=== PATIENT | female | born 1960 | race Caucasian/White ===

== ENCOUNTER 2017-05-08 20:22 | Inpatient (IN) | payer OTHER ==
[~2017-05-08] VITALS: Ht 182.9 cm; Wt 66.4 kg
[2017-05-08 21:32] LABS: ABSOLUTE BASOPHIL COUNT 0.1 /CUMM (0.0-0.2); ABSOLUTE EOSINOPHIL COUNT 0.1 /CUMM (0.0-0.7); ABSOLUTE GRANULOCYTE CT 8.7 /CUMM (1.4-6.5); ABSOLUTE LYMPH COUNT 3.3 /CUMM (1.2-3.4); ABSOLUTE MONOCYTE COUNT 0.8 /CUMM (0.10-0.60); BASOPHIL % 0.6 % (0.0-2.0); EOSINOPHIL % 0.4 % (0-5); GRANULOCYTE % 67.5 % (42.2-75.2); MEAN CORPUSCULAR HGB 30.1 PG (27.0-31.0); MEAN CORPUSCULAR HGB CONC 33.4 G/DL (33.0-37.0); MEAN CORPUSCULAR VOLUME 90.3 FL (81.0-99.0); MEAN PLATELET VOLUME 7.5 FL (7.4-10.4); PLATELET COUNT 325 /CUMM (130-400); RBC DISTRIBUTION WIDTH 13.8 % (11.5-14.5); RED BLOOD CELL CT 4.65 /CUMM (4.20-5.40); WHITE BLOOD CELL COUNT 12.9 /CUMM (4.8-10.8)
--- NOTE | 2017-05-08 22:12 | ED CARDIAC/CP/PALPITATIONS ---
History of Present Illness General Chief Complaint: Chest Pain Stated Complaint: CHEST PAIN Source: patient Exam Limitations: no limitations Vital Signs & Intake/Output Vital Signs & Intake/Output Vital Signs Date Time Temp Pulse Resp B/P B/P Pulse O2 O2 Flow FiO2 Mean Ox Delivery Rate 05/08 2249 84 118/70 05/08 2249 84 18 118/70 100 Room Air 05/08 2054 98.3 96 16 108/60 99 Room Air Room Air ED Intake and Output 05/09 0000 05/08 1200 Intake Total 0 Output Total Balance 0 Intake, Oral 0 Patient 155 lb Weight Allergies Coded Allergies: adhesive (Mild, RASH, ITCHING, WELTS FROM THE PATCH FROM SMOKING 05/08/17) Reconcile Medications Gabapentin 300 MG CAPSULE 2 CAP PO TID PRN ANXIETY (Reported) Lisdexamfetamine Dimesylate (Vyvanse) 40 MG CAPSULE 1 CAP PO QAM ADHD ( Reported) Paroxetine HCl (Paxil) 10 MG TABLET 2 TAB PO DAILY MENTAL HEALTH (Reported) Triage Note: PT TO TRIAGE AFTER A NEAR SYNCOPAL EPISODE AT WORK THIS EVENING. PT STATES HER VISION WENT TO BLACK, SHE BECAME DIAPHORETIC, HAD JAW PAIN. DENIES CHEST PAIN, BUT HAD PAIN IN HER BACK. CURRENTLY SHE APPEARS IN NO DISTRESS. STATES SHE ONLY HAS A HEADACHE. Triage Nurses Notes Reviewed? yes Onset: Abrupt Duration: hour(s):, resolved prior to arrival Timing: recent history Quality/Severity: moderate, severe Radiation: no radiation HPI: 56-year-old female comes into the emergency room for evaluation of chest pain/ jaw pain/dizziness and heart felt like it was racing. Patient reports that she was at work. She was sitting at her desk. Symptoms she felt like her heart was racing and everything went black. She leaned over. She had some associated jaw pain radiating down into her clavicle region and some upper abdominal pain. Symptoms lasted for about 30 minutes. She went to a walk-in clinic who sent her up here to the emergency room for further evaluation. She denies any vomiting. Her symptoms have resolved. She denies any other associated symptoms at this time. Currently chest pain-free. (Ran FLORES,Shane) Past History Travel History Traveled to [place] past 21 day No Medical History Any Pertinent Medical History? see below for history Neurological: NONE EENT: NONE Cardiovascular: MITRAL VALVE PROLAPSED Psychiatric: ADHD Surgical History Surgical History: non-contributory Psychosocial History What is your primary language Grenadian Tobacco Use: Current Daily Use Daily Tobacco Use Amount/Type: => 5 Cigarettes daily ETOH Use: denies use Illicit Drug Use: denies illicit drug use Family History Hx Contributory? No (Shane Garrett) Review of Systems Review of Systems Constitutional: Reports: see HPI. EENTM: Reports: no symptoms. Respiratory: Reports: see HPI. Cardiovascular: Reports: see HPI. GI: Reports: no symptoms. Genitourinary: Reports: no symptoms. Musculoskeletal: Reports: no symptoms. Skin: Reports: no symptoms. Neurological/Psychological: Reports: no symptoms. Hematologic/Endocrine: Reports: no symptoms. Immunologic/Allergic: Reports: no symptoms. All Other Systems: Reviewed and Negative (Shane Garrett) Physical Exam Physical Exam General Appearance: well developed/nourished, no apparent distress, alert, awake Head: atraumatic, normal appearance Eyes: Bilateral: normal appearance. Ears, Nose, Throat: normal ENT inspection, hearing grossly normal Neck: normal inspection Respiratory: normal breath sounds, no respiratory distress Cardiovascular: regular rate/rhythm Back: normal inspection Extremities: normal inspection Neurologic/Psych: awake, alert, oriented x 3, normal gait, normal mood/affect Skin: intact, normal color Core Measures ACS in differential dx? Yes CVA/TIA Diagnosis No Sepsis Present: No Sepsis Focused Exam Completed? No (Shane Garrtet) Progress Differential Diagnosis: AMI, aortic dissection, hyperthyroid, pancreatitis, pericarditis, pneumonia, pneumothorax, pulmonary embolism, unstable angina, V- fib/V-Tach Plan of Care: Orders Procedure Date/time Status Heart Healthy Diet 05/09 D Active Heart Healthy Diet 05/09 B Active TROPONIN LEVEL 05/09 1100 Active EKG 05/09 1100 Active LIPID PANEL 05/09 0600 Active CBC WITHOUT DIFFERENTIAL 05/09 06 Active BASIC ELECTROLYTES PLUS BUN&CR 05/09 0600 Active PARTIAL THROMBOPLASTIN TIME 05/09 0440 Active TROPONIN LEVEL 05/09 0400 Active EKG 05/09 0400 Active Pathway - chart 05/08 2347 Active Code Status 05/08 2347 Active Lab Add-on Test 05/08 2344 Active URINE DRUGS OF ABUSE 05/08 2344 Active URINALYSIS 05/08 2344 Active Lab Add-on Test 03/08 2302 Active Patient Data 05/08 2242 Active Add-on Test (ER Only) 05/08 2236 Active OXYGEN SETUP (GEN) 05/08 2230 Active Saline Lock 05/08 2230 Active Admit to inpatient 05/08 2230 Active Vital Signs 05/08 2230 Active Activity/Ambulation 05/08 2230 Active Code Status 05/08 2230 Complete Intake & Output 05/08 2216 Active Add-on Test (ER Only) 05/08 2152 Active TSH REFLEX 05/08 2099 Complete PARTIAL THROMBOPLASTIN TIME 05/08 2099 Complete PROTHROMBIN TIME 05/08 2099 Complete D-DIMER 05/08 2099 Complete TROPONIN LEVEL 05/09 2055 Complete COMPREHENSIVE METABOLIC PANEL 05/09 2055 Complete CBC WITHOUT DIFFERENTIAL 05/09 2055 Complete EKG 05/08 2022 Active Pathway - chart 05/08 UNK Active House Staff 05/08 UNK Active ACS Core Measures 05/08 UNK Active Weight 05/08 UNK Active VTE Mechanical Prophylaxis 05/08 UNK Active Vital Signs 05/08 UNK Active Intake & Output 05/08 UNK Active Hemoccult 05/08 UNK Active Activity/Ambulation 05/08 UNK Active CASE MANAGEMENT CONSULT 05/08 UNK Active ECHOCARDIOGRAM 05/08 UNK Active Current Medications Sig/Thor Start time Last Medication Dose Stop Time Status Admin Aspirin 81 MG DAILY 05/09 1000 AC (Aspirin) Clopidogrel Bisulfate 75 MG DAILY 05/09 1000 AC (Plavix) Metoprolol Tartrate 25 MG BID 05/09 1000 AC (Lopressor) Multivitamins 1 TAB DAILY 05/09 1000 CAN (Theragran Vitamins) Paroxetine HCl 20 MG DAILY 05/09 1000 AC (Paxil) Gabapentin 600 MG TID PRN 05/09 0015 AC (Neurontin) Heparin Sodium 25,000 UNIT Q24H 05/08 2230 AC 05/08 (Porcine) 2236 (Heparin) Sodium Chloride 500 ML Laboratory Tests 05/08/172099: Anion Gap 10, Estimated GFR 58 L, BUN/Creatinine Ratio 16.0, Glucose 91, Calcium 9.8, Total Bilirubin 0.8, AST 46 H, ALT 53 H, Alkaline Phosphatase 70, Troponin I 0.16 *H, Total Protein 7.3, Albumin 4.2, Globulin 3.1, Albumin/ Globulin Ratio 1.4, TSH &T3 &Free T4 Intrp 3.120, PT 11.1, INR 1.02, APTT 34, D- Dimer High Sensitivty < 200, CBC w Diff NO MAN DIFF REQ, RBC 4.65, MCV 90.3, MCH 30.1, MCHC 33.4, RDW 13.8, MPV 7.5, Gran % 67.5, Lymphocytes % 25.4, Monocytes % 6.1, Eosinophils % 0.4, Basophils % 0.6, Absolute Granulocytes 8.7 H, Absolute Lymphocytes 3.3, Absolute Monocytes 0.8 H, Absolute Eosinophils 0.1, Absolute Basophils 0.1 Diagnostic Imaging: Viewed by Me: Radiology Read. Discussed w/RAD: Radiology Read. Initial ED EKG: normal sinus rhythm, rate (91), nonspecific ST T wave chg (Shane Garrett) Departure Departure Disposition: STILL A PATIENT Condition: Stable Clinical Impression Primary Impression: Unstable angina Secondary Impressions: Troponin level elevated Referrals: Bassam Kapadia MD (PCP/Family) Departure Forms: Customer Survey General Discharge Information Admission Note Spoke With: Terri ALEX PHD,Rainer Salazar Documentation of Exam: Documentation of any treatments & extenuating circumstances including Concerns Regarding Discharge (functional status, medication knowledge or non-compliance, living conditions, etc.) that warrant an admission rather than observation: Patient has an elevated troponin. Patient had a cardiac event. Patient will require IV heparin. Plavix. Aspirin. Cardiac telemetry. Serial troponins. Cardiac consultation. High risk. Medically not safe for discharge. (Shane Garrett) PA/FLATWORK TIER Co-Sign Statement Statement: ED Attending supervision documentation- x I saw and evaluated the patient. I have also reviewed all the pertinent lab results and diagnostic results. I agree with the findings and the plan of care as documented in the PA's/FLATWORK TIER's documentation. Exertional cp, + trop, NSTEMI [] I have reviewed the ED Record and agree with the PA's/FLATWORK TIER's documentation. [] Additions or exceptions (if any) to the PAs/FLATWORK TIER's note and plan are summarized below: [] (Cristiana ALEX,Santos) Critical Care Note Critical Care Note Critical Care Time: 30-74 min (35) (Shane Garrett)
--- NOTE | 2017-05-08 22:28 | History & Physical ---
Isaac ALEX,[facility] 05/08/173: General Information and HPI MD Statement: I have seen and personally examined TREVOR CARBALOL and documented this H&P. The patient is a 56 year old F who presented with a patient stated chief complaint of [chest pain]. Source of Information: patient Exam Limitations: no limitations History of Present Illness: 56 year old F with a pmhx of adhd, etoh abuse, presenting for epigastric pain and a ?syncopal event. Patient states symptoms started around 445pm witha flores of heat. She states everything went black visually and then she put her head down on her desk. Then sat up and felt palpitations/tachy. Used a bp monitoring cuff and found her vitals to be 80/63 with HR 129 and then 88/76 with HR 115. She then had jawpain b/l radiating to her clavicle. Her hr reminaed 100+. She was sweating and had epigastric pain but no chest pain. She then proceeded to leave work but felt work and even her purse felt heavy. She then saw in her car and saw chest palpitations. She felt a little dizzy and [facility] and was told to go to the ED. She states that earlier in the day she did have hot flashes, and neck pain. She states she had a similar episode 3-4 months ago with very similar symptoms. Past History Travel History Traveled to [place] past 21 day No Medical History Neurological: NONE EENT: NONE Cardiovascular: MITRAL VALVE PROLAPSED Psychiatric: ADHD Surgical History Surgical History: non-contributory Past Family/Social History Psychosocial History Smoking Status: Current Everyday Smoker ETOH Use: former alcoholic Illicit Drug Use: denies illicit drug use Review of Systems Review of Systems Constitutional: Reports: see HPI, diaphoresis, weakness. EENTM: Reports: see HPI. Cardiovascular: Reports: see HPI (epigastric pain), palpitations. Musculoskeletal: Reports: see HPI. Neurological/Psychological: Reports: see HPI (lightheadedness). Exam & Diagnostic Data Last 24 Hrs of Vital Signs/I&O Vital Signs Date Time Temp Pulse Resp B/P B/P Pulse O2 O2 Flow FiO2 Mean Ox Delivery Rate 05/09 1236 72 90/50 05/09 0854 64 90/60 05/09 0634 98.2 64 20 90/60 95 05/09 0133 98.0 65 20 100/68 96 05/09 0049 97.8 78 16 109/75 98 05/089 84 118/70 05/089 84 18 118/70 100 Room Air 05/08 2053 98.3 96 16 108/60 99 Room Air Room Air Intake & Output 05/09 1600 05/09 0800 05/09 0000 Intake Total 138 0 Output Total Balance 138 0 Intake, IV 138 Intake, Oral 0 0 Patient 155 lb 155 lb Weight Weight Bed scale Measurement Method Physical Exam General Appearance Alert, Oriented X3, Cooperative HEENT EOMI, dry oral mucosa Cardiovascular systolic murmur Lungs Clear to Auscultation, Normal Air Movement Abdomen Normal Bowel Sounds, Soft, No Tenderness Extremities 5/5 UE and LE strength b/l Vascular 2+ radial pulses Last 24 Hrs of Labs/Raffy: Laboratory Tests 05/09/17 1126: Troponin I 0.17 *H, APTT 60 H 05/09/17 0400: Troponin I Cancelled 05/09/17 0355: Anion Gap 8, Estimated GFR > 60, BUN/Creatinine Ratio 26.3 H, Troponin I 0.29 * H, Triglycerides 63, Cholesterol 166, LDL Cholesterol, Calc 95, HDL Cholesterol 59, Cholesterol/HDL Ratio 3, APTT 53 H, CBC w Diff NO MAN DIFF REQ, RBC 4.21, MCV 90.0, MCH 30.5, MCHC 33.8, RDW 14.0, MPV 7.5, Gran % 50.5, Lymphocytes % 40.3, Monocytes % 6.4, Eosinophils % 2.1, Basophils % 0.7, Absolute Granulocytes 5.3, Absolute Lymphocytes 4.2 H, Absolute Monocytes 0.7 H, Absolute Eosinophils 0.2, Absolute Basophils 0.1 05/08/17 2344: Methadone Screen Cancelled, Barbiturate Screen Cancelled, Ur Phencyclidine Scrn Cancelled, Amphetamines Screen Cancelled, U Benzodiazepines Scrn Cancelled, Urine Cocaine Screen Cancelled, Urine Cannabis Screen Cancelled 05/08/17 2100: Anion Gap 10, Estimated GFR 58 L, BUN/Creatinine Ratio 16.0, Glucose 91, Calcium 9.8, Total Bilirubin 0.8, AST 46 H, ALT 53 H, Alkaline Phosphatase 70, Troponin I 0.16 *H, Total Protein 7.3, Albumin 4.2, Globulin 3.1, Albumin/ Globulin Ratio 1.4, TSH &T3 &Free T4 Intrp 3.120, PT 11.1, INR 1.02, APTT 34, D- Dimer High Sensitivty < 200, CBC w Diff NO MAN DIFF REQ, RBC 4.65, MCV 90.3, MCH 30.1, MCHC 33.4, RDW 13.8, MPV 7.5, Gran % 67.5, Lymphocytes % 25.4, Monocytes % 6.1, Eosinophils % 0.4, Basophils % 0.6, Absolute Granulocytes 8.7 H, Absolute Lymphocytes 3.3, Absolute Monocytes 0.8 H, Absolute Eosinophils 0.1, Absolute Basophils 0.1 Assessment/Plan Assessment: A: 56 year old F with a pmhx of adhd, etoh abuse, presenting for epigastric pain and a ?syncopal event found to have elevated troponins most likely 2/2 to NSTEMI P: #near syncopal event most likely 2/2 to NSTEMi Pt currently asymptomatic Trops .16,.29 D-dimer <200 -keep NPO per Dr. Murray -cont ekg, trops 10AM -cont IV heparin -aspirin, plavix, atorvastatin 80, metoprolol -f/u echo -f/u utox -f/u tsh, free t4 -pain control, and o2 as needed -start nitropaste per cardiology #leukocytosis WBC 12.9 Pt afebrile -most likely reactive, cont to monitor #mental health -cont pareoxtine, gabapentin prn anxiety #DVT prophylaxis with heparin #FULL CODE As Ranked By This Provider Problem List: 1. Unstable angina 2. Troponin level elevated Core Measures/Misc (11/17) Acute Coronary Syndrome ACS Diagnosis: Yes Congestive Heart Failure Congestive Heart Failure Diagnosis No Cerebrovascular Accident CVA/TIA Diagnosis: No VTE (View Protocol) VTE Risk Factors Acute Medical Illness No Mechanical VTE Prophylaxis d/t Other No VTE Pharm Prophylaxis d/t NA PharmProphylax ordered Sepsis (View protocol) Sepsis Present: Masha Dixon 05/08/17 3798: General Information and HPI MD Statement: I have seen and personally examined TREVOR CARBALLO and documented this H&P. The patient is a 56 year old F who presented with a patient stated chief complaint of []. Allergies/Medications Allergies: Coded Allergies: adhesive (Mild, RASH, ITCHING, WELTS FROM THE PATCH FROM SMOKING 05/08/17) Home Med list Gabapentin 300 MG CAPSULE 2 CAP PO TID PRN ANXIETY (Reported) Lisdexamfetamine Dimesylate (Vyvanse) 40 MG CAPSULE 1 CAP PO QAM ADHD ( Reported) Paroxetine HCl (Paxil) 10 MG TABLET 2 TAB PO DAILY MENTAL HEALTH (Reported) Resident Review Statement Resident Statement: amended to note Other Findings: Ms Carballo is a 56 year old woman with a past medical history of ADHD, mitral valve prolapse came to the hospital with a chief concern of epigastric pain radiating to the jaw associated with palpitations and dizziness. She was at her work finishing up her day's assignments around 5 PM, when the episode occurred after which she leaned over when she had a episode of lightheadedness. Symptoms lasted for approximately 30 minutes, radiating to jaw and back, severity-; was also diaphoretic and had vision changes. She also reported a very stressful day at work. And was evaluated at an urgent care center after which she was sent to [place] [facility] for further workup. At present, she does not have any symptoms. History of [id number]-xegw smoking history, heavy alcohol use up until 6 years ago, recent amphetamine use, family history of coronary artery disease in sister and mother. Also gives a history of similar complaints approximately 4 months ago which resolved upon itself. At the time of admissions, temperature 98.3, pulse rate 96, respirations 16, blood pressure 108/60, 99% on room. On examination: General Exam: AAOx3, No acute distress, Skin: No rashes, no breakdown HEENT: PERRLA, EOMI Neck: Supple, No JVD No cervical lymphadenopathy CVS: Reg Rate, Normal S1,S2, No MGR Resp: Normal air entry, no ronchi/rales Abdomen: Soft, No tenderness, Normal Bowel Sounds Neuro: Normal Speech, Strength 5/5 b/l x 4 extremities, Sensation intact, CN III -XII NL, Reflexes 2+ Extremities: No cyanosis, pedal edema Pertinent Findings except obesity 0.4, hemoglobin 14.0, platelets 325. Sodium 138, potassium 4.2, bicarbonate 26, BUN 16, creatinine 1.0, cardiac enzymes- troponin I 0.16, liver chemistries-AST 46, ALT 53, alkaline phosphatase 70, proBNP less than 200. EKG revealed tachycardia, normal axis, mild ST depressions in V4,V5 wave changes ( which could be non specific ).. Etiology in her case is likely due to NSTEMI, given her high risk for cardiac diseases. Other causes such as hyperthyroidism, MVP itself or drugs could have contributed to it. MIHAELA score of 2, and would most likely need to be risk stratified. She had an episode of tachycardia while she was in the ED for which she received a dose of metoprolol. Problem list: #1 NSTEMI #2 history of ADHD #3 history of mitral valve prolapse Plan: #1 admit the patient to telemetry #2 aspirin 325 and Plavix 75 1 was given in the ED. Continue aspirin and Plavix at this time. #3 serial echocardiograms and cardiac enzymes #4 echocardiogram #5 continue aspirin, Plavix, beta nicole and statin daily #6 vitals every shift #7 monitor blood pressure closely #8 check U tox #9 check TSH free T4 #10 continue paroxetine #11 intravenous heparin was started in the ED for anticoagulation Housekeeping: #1 DVT prophylaxis-heparin intravenous #2 full code #3 diet-heart healthy diet. If she has any episode of chest pain, or has worsening tropes or EKGs would make her nothing by mouth, if she would need a cardiac catheterization. #4 medications held-amphetamines pending U tox analysis.
[2017-05-08] MEDS ORDERED: VYVANSE40 M1 PO (22:41)
[2017-05-08] MEDS ORDERED: PAXIL10 M1 PO (22:42)
[2017-05-08] MEDS ORDERED: GABAPENTIN300 M2 PO (22:42)
[2017-05-08 22:49] LABS: PT 11.1 SEC (9.4-12.5); PTT 34 SEC (25-37)
--- NOTE | 2017-05-09 00:11 | RADIOLOGY REPORT ---
EXAMINATION: XR PORTABLE CHEST CLINICAL INFORMATION: Chest pain COMPARISON: None TECHNIQUE: Portable frontal view of the chest was obtained. FINDINGS: Lung volumes are symmetric. No focal consolidation is seen. No evidence of pneumothorax, pleural effusion, or pulmonary edema. The cardiomediastinal contour is unremarkable. There is a levoscoliosis of the lower thoracic spine. No acute osseous findings are seen. IMPRESSION: No acute cardiopulmonary findings.
[2017-05-09 01:33] VITALS: BP 100/68
[2017-05-09 04:28] LABS: ABSOLUTE EOSINOPHIL COUNT 0.2 /CUMM (0.0-0.7); ABSOLUTE GRANULOCYTE CT 5.3 /CUMM (1.4-6.5); ABSOLUTE LYMPH COUNT 4.2 /CUMM (1.2-3.4); ABSOLUTE MONOCYTE COUNT 0.7 /CUMM (0.10-0.60); BASOPHIL % 0.7 % (0.0-2.0); EOSINOPHIL % 2.1 % (0-5); GRANULOCYTE % 50.5 % (42.2-75.2); MEAN CORPUSCULAR HGB 30.5 PG (27.0-31.0); MEAN CORPUSCULAR HGB CONC 33.8 G/DL (33.0-37.0); MEAN PLATELET VOLUME 7.5 FL (7.4-10.4); PLATELET COUNT 290 /CUMM (130-400); RED BLOOD CELL CT 4.21 /CUMM (4.20-5.40); WHITE BLOOD CELL COUNT 10.5 /CUMM (4.8-10.8)
[2017-05-09 04:29] LABS: ABSOLUTE BASOPHIL COUNT 0.1 /CUMM (0.0-0.2); HEMATOCRIT 37.9 % (37-47)
[2017-05-09 04:36] LABS: PTT 53 SEC (25-37)
[2017-05-09 06:34] VITALS: BP 90/60
--- NOTE | 2017-05-09 07:50 | PN- Housestaff ---
Subjective Follow-up For: NSTEMI Subjective: Patient resting comfortably in bed, denies any chest pain, palpitations, shortness of breath or lower extremity edema. States she has had one episode of similar chest pain in the past but did not seek any medical attention at that time and the pain resolved on its own. Review of Systems Constitutional: Reports: no symptoms. EENTM: Reports: no symptoms. Cardiovascular: Reports: no symptoms. Respiratory: Reports: no symptoms. Gastrointestinal: Reports: no symptoms. Genitourinary: Reports: no symptoms. Musculoskeletal: Reports: no symptoms. Skin: Reports: no symptoms. Neurological/Psychological: Reports: no symptoms. Hematologic/Endocrine: Reports: no symptoms. Immunologic/Allergic: Reports: no symptoms. Objective Last 24 Hrs of Vital Signs/I&O Vital Signs Date Time Temp Pulse Resp B/P B/P Pulse O2 O2 Flow FiO2 Mean Ox Delivery Rate 05/09 1400 98.4 62 18 90/52 95 05/09 1236 72 90/50 05/09 0854 64 90/60 05/09 0634 98.2 64 20 90/60 95 / 0133 98.0 65 20 100/68 96 05/09 0049 97.8 78 16 109/75 98 05/08 2249 84 118/70 05/08 2249 84 18 118/70 100 Room Air 05/08 2054 98.3 96 16 108/60 99 Room Air Room Air Intake & Output 05/09 1600 05/09 0800 05/09 0000 Intake Total 560 138 0 Output Total 600 Balance -40 138 0 Intake, IV 160 138 Intake, Oral 400 0 0 Output, Urine 600 Patient 155 lb 155 lb Weight Weight Bed scale Measurement Method Physical Exam General Appearance: Alert, Oriented X3, Cooperative, No Acute Distress Skin: No Rashes, No Breakdown Cardiovascular: Regular Rate, Normal S1, Normal S2 Lungs: Clear to Auscultation Abdomen: Normal Bowel Sounds, Soft, No Tenderness Extremities: No Clubbing, No Cyanosis, No Edema Current Medications: Current Medications Sig/Thor Start time Last Medication Dose Route Stop Time Status Admin Acetaminophen 650 MG Q8P PRN 05/09 0245 AC PO Aspirin 325 MG DAILY 05/10 1000 AC PO Aspirin 81 MG DAILY 05/09 1000 DC 05/09 PO 1230 Aspirin 0 .STK-MED ONE 05/08 2225 DC PO Aspirin 325 MG ONCE ONE 05/08 2214 DC 05/08 PO 05/08 2216 2237 Atorvastatin Calcium 80 MG 1700 05/09 1700 AC PO Clopidogrel Bisulfate 75 MG DAILY 05/09 1000 AC 05/09 PO 0854 Clopidogrel Bisulfate 75 MG ONCE ONE 05/08 2230 DC 05/08 PO 05/08 2231 2237 Gabapentin 600 MG TID PRN 05/09 0015 AC PO Heparin Sodium 2,100 UNIT ONCE ONE 05/09 0615 DC 05/09 (Porcine) IV 05/09 0616 0634 Heparin Sodium 4,000 UNIT ONCE ONE 05/08 2230 DC 05/08 (Porcine) IV 05/08 223 2237 Heparin Sodium 25,000 UNIT Q24H 05/08 223 AC 05/08 (Porcine) IV 223 Sodium Chloride 500 ML Heparin Sodium 0 .STK-MED ONE 05/08 222 DC (Porcine) .ROUTE Ibuprofen 600 MG ONCE ONE 05/09 0145 DC 05/09 PO 05/09 0146 0147 Metoprolol Tartrate 25 MG BID 05/09 1000 AC 05/09 PO 0854 Metoprolol Tartrate 0 .STK-MED ONE 05/08 2251 DC PO Metoprolol Tartrate 25 MG ONCE ONE 05/08 223 DC 05/08 PO 05/08 2231 2249 Morphine Sulfate 2 MG Q8P PRN 05/09 0315 AC 05/09 IV 0852 Multivitamins 1 TAB DAILY 05/09 1000 CAN PO Nitroglycerin 0.5 GM Q6 05/09 0600 AC TOP Oxycodone HCl 5 MG Q8P PRN 05/09 0245 DC PO Paroxetine HCl 20 MG DAILY 05/09 1000 AC 05/09 PO 0854 Tramadol HCl 50 MG Q8P PRN 05/09 0245 AC PO Last 24 Hrs of Lab/Raffy Results Last 24 Hrs of Labs/Mics: Laboratory Tests 05/09/17 1126: Troponin I 0.17 *H, APTT 60 H 05/09/17 0400: Troponin I Cancelled 05/09/17 0355: Anion Gap 8, Estimated GFR > 60, BUN/Creatinine Ratio 26.3 H, Troponin I 0.29 * H, Triglycerides 63, Cholesterol 166, LDL Cholesterol, Calc 95, HDL Cholesterol 59, Cholesterol/HDL Ratio 3, APTT 53 H, CBC w Diff NO MAN DIFF REQ, RBC 4.21, MCV 90.0, MCH 30.5, MCHC 33.8, RDW 14.0, MPV 7.5, Gran % 50.5, Lymphocytes % 40.3, Monocytes % 6.4, Eosinophils % 2.1, Basophils % 0.7, Absolute Granulocytes 5.3, Absolute Lymphocytes 4.2 H, Absolute Monocytes 0.7 H, Absolute Eosinophils 0.2, Absolute Basophils 0.1 05/08/17 2344: Methadone Screen Cancelled, Barbiturate Screen Cancelled, Ur Phencyclidine Scrn Cancelled, Amphetamines Screen Cancelled, U Benzodiazepines Scrn Cancelled, Urine Cocaine Screen Cancelled, Urine Cannabis Screen Cancelled, Urine Color Cancelled, Urine Clarity Cancelled, Urine pH Cancelled, Ur Specific [place] Cancelled, Urine Protein Cancelled, Urine Ketones Cancelled, Urine Nitrite Cancelled, Urine Bilirubin Cancelled, Urine Urobilinogen Cancelled, Ur Leukocyte Esterase Cancelled, Ur Microscopic Cancelled, Urine Hemoglobin Cancelled, Urine Glucose Cancelled 05/08/17 2100: Anion Gap 10, Estimated GFR 58 L, BUN/Creatinine Ratio 16.0, Glucose 91, Calcium 9.8, Total Bilirubin 0.8, AST 46 H, ALT 53 H, Alkaline Phosphatase 70, Troponin I 0.16 *H, Total Protein 7.3, Albumin 4.2, Globulin 3.1, Albumin/ Globulin Ratio 1.4, TSH &T3 &Free T4 Intrp 3.120, PT 11.1, INR 1.02, APTT 34, D- Dimer High Sensitivty < 200, CBC w Diff NO MAN DIFF REQ, RBC 4.65, MCV 90.3, MCH 30.1, MCHC 33.4, RDW 13.8, MPV 7.5, Gran % 67.5, Lymphocytes % 25.4, Monocytes % 6.1, Eosinophils % 0.4, Basophils % 0.6, Absolute Granulocytes 8.7 H, Absolute Lymphocytes 3.3, Absolute Monocytes 0.8 H, Absolute Eosinophils 0.1, Absolute Basophils 0.1 Assessment/Plan Assessment: Ms Smith is a 56 year old woman with a past medical history of ADHD, mitral valve prolapse came to the hospital with a chief concern of epigastric pain radiating to the jaw associated with palpitations and dizziness. Problem List; 1. NSTEMI 2. History of ADHD and mitral valve prolapse - Troponin trended down from 0.29-0.17. - Will continue IV heparin, aspirin , Plavix, NTG paste 1/2 inch Q 6 hours, Lipitor and Metoprolol 25mg BID. 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 We will keep all the paperwork ready in case the patient needs to be transferred. DVT prophylaxis; IV heparin Patient is full code Problem List: 1. Troponin level elevated 2. NSTEMI (non-ST elevated myocardial infarction) Pain Ratin Pain Location: Chest Pain Goal: Remain pain free Pain Plan: Nitroglycerin Tomorrow's Labs & Rationales: None
--- NOTE | 2017-05-09 10:39 | Cons- Cardiology ---
General Information and HPI Consulting Request Date of Consult: 05/09/17 Requested By: Terri ALEX PHD,Rainer Salazar History of Present Illness: This patient is a 56 year old female with history of mitral valve prolapse and tobacco abuse who presented to [facility] for symptoms and physical findings consistent with a NSTEMI. The patient noted the sudden onset of a hot flash with diaphoresis. This was followed by a neck discomfort radiating downward toward her clavicles. The discomfort was associated with nausea, mild palpitations and lightheadedness but she denies shortness of breath. A D-dimer was checked and was in the normal range. The patient now has a two troponins that are upward trending with the current troponin 0.29. The patient feels improved this morning on her current drug regimen. Allergies/Medications Allergies: Coded Allergies: adhesive (Mild, RASH, ITCHING, WELTS FROM THE PATCH FROM SMOKING 05/08/17) Home Med List: Gabapentin 300 MG CAPSULE 2 CAP PO TID PRN ANXIETY (Reported) Lisdexamfetamine Dimesylate (Vyvanse) 40 MG CAPSULE 1 CAP PO QAM ADHD ( Reported) Paroxetine HCl (Paxil) 10 MG TABLET 2 TAB PO DAILY MENTAL HEALTH (Reported) Review of Systems Review of Systems: A review of systems is unremarkable. Past History Travel History Traveled to [place] past 21 day No Medical History Blood Transfusion Hx: No Neurological: NONE EENT: NONE Cardiovascular: MITRAL VALVE PROLAPSED Psychiatric: ADHD Surgical History Surgical History: knee replacement Family History Family History Reviewed? Mother: premature CAD Sister: aortic aneurysm Psychosocial History Where Do You Live? Home Services at Home: None Smoking Status: Current Everyday Smoker ETOH Use: denies use Illicit Drug Use: denies illicit drug use Exam & Diagnostic Data Vital Signs and I&O Vital Signs Date Time Temp Pulse Resp B/P B/P Pulse O2 O2 Flow FiO2 Mean Ox Delivery Rate 05/09 0854 64 90/60 05/09 0634 98.2 64 20 90/60 95 05/09 0133 98.0 65 20 100/68 96 05/09 0049 97.8 78 16 109/75 98 05/08 2249 84 118/70 05/089 84 18 118/70 100 Room Air 05/084 98.3 96 16 108/60 99 Room Air Room Air Intake & Output 05/09 1600 05/09 0805/09 0000 05/08 1600 05/08 0800 05/08 0000 Intake Total 138 0 Output Total Balance 138 0 Intake, IV 138 Intake, Oral 0 0 Patient 155 lb 155 lb Weight Weight Bed scale Measurement Method Physical Exam: General: WD/WN female in NAD; alert and oriented x 3 HEENT: NC/AT, PERRL, EOMI Neck: no JVD, no carotid bruit Heart: RRR w/o murmur, mitral valve click Lungs: clear bilaterally ABdomen: soft, NT, +ve bowel sounds Extremities: no edema Assessment/Plan Assessment/Plan * This patient has multiple risk factors for coronary artery disease and presented with symptoms and laboratory findings consistent with a NSTEMI. There is no evidence of increase myocardial demand to suggest a type 2 NC. At present her cardiac enzymes are on an upward trend but we will follow then until they peak. * Begin IV heparin, aspirin 325mg daily, Plavix 75mg daily after a 300mg loading dose. Begin NTG paste 1/2 inch Q 6 hours and Lipitor 80mg daily. Continue Metoprolol 25mg BID. O2 2L by NC. * Will review her echocardiogram. * This patient is recommended to have a cardiac catheterization but she feels is understandably uncomfortable with any procedures due to her sister having a fatal complication during a cardiac procedure. She will consult her PCP and family and will consider this option. Consult Acknowledgment - Thank you for your consult request.
[2017-05-09 12:08] LABS: PTT 60 SEC (25-37)
[2017-05-09 12:36] VITALS: BP 90/50
[2017-05-09 14:00] VITALS: BP 122/50; BP 90/52
[2017-05-09] MEDS ORDERED: PLAVIX75 M1 PO (14:56)
[2017-05-09] MEDS ORDERED: ATORVASTATIN CA80 M1 PO (14:56)
[2017-05-09] MEDS ORDERED: METOPROLOL TART25 M1 PO (14:56)
[2017-05-09] MEDS ORDERED: ASPIRIN325 M2 PO (14:57)
--- NOTE | 2017-05-09 15:00 | Discharge Summary ---
Visit Information Visit Dates Admission Date: 05/08/17 Discharge Date: 05/11/17 Hospital Course Course Attending Physician: Terri ALEX PHD,Rainer Salazar Primary Care Physician: Kang ALEX,[facility] Course: Ms Smith is a 56 year old woman with a past medical history of ADHD, mitral valve prolapse who presented with a chief complaint of epigastric pain radiating to the jaw associated with palpitations and dizziness. She was at her work finishing up her day's assignments around 5 PM on the day of presentation, when the episode occurred after which she leaned over and she had an episode of lightheadedness. Her symptoms lasted for approximately 30 minutes, with the epigastric pain radiating to her jaw and the back. She was also diaphoretic and had some nonspecific vision changes. Her symptoms occured int the context of her having a very stressful day at work. On account of her symptoms, she was evaluated at an urgent care center after which she was sent to [facility] for further workup. Her symptoms had resolved upon arrival in the emergency department. Of note, the patient admitted a history of [id number] smoking history, heavy alcohol use up until 6 years ago, recent amphetamine use, and a family history of coronary artery disease in her sister and mother. She also gave a history of similar complaints approximately 4 months prior to presentation which resolved spontaneously. At the time of admissions, temperature 98.3, pulse rate 96, respirations 16, blood pressure 108/60, 99% on room. Physical exam at presentation was as follows: General Exam: AAOx3, No acute distress, Skin: No rashes, no breakdown HEENT: PERRLA, EOMI Neck: Supple, No JVD No cervical lymphadenopathy CVS: Reg Rate, Normal S1,S2, No MGR Resp: Normal air entry, no ronchi/rales Abdomen: Soft, No tenderness, Normal Bowel Sounds Neuro: Normal Speech, Strength 5/5 b/l x 4 extremities, Sensation intact, CN III -XII NL, Reflexes 2+ Extremities: No cyanosis, pedal edema Pertinent laboratory findings included a CBC showing WBC of 12.9/cumm. hemoglobin 14.0 grams/DL, platelets 325/cumm. Chemistries showed Sodium 138, potassium 4.2, bicarbonate 26, BUN 16, creatinine 1.0, troponin was elevated at 0.16 NG/mL, liver chemistries-AST 46, ALT 53, alkaline phosphatase 70, proBNP less than 200. TSH was normal at 3.12. EKG revealed tachycardia, normal axis, mild ST depressions in V4,V5 wave changes. Chest x-ray showed no acute cardiopulmonary findings. She was admitted and evaluated for an NSTEMI and received aspirin 325 mg dose. She also was started on an IV heparin drip and received 75 mg of Plavix daily, metoprolol 25 mg twice a day and Lipitor 80 mg daily. She was reviewed by medical device sales consultant Dr. Murray who recommended transferring her to an outside facility for cardiac catheterization. However the patient was reluctant on pursuing this option and stated that her sister had a fatal complication during a cardiac procedure in the past. She opted to be discharged home to follow up with her outpatient medical device sales consultant for further cardiac workup. She remained free of chest pain while on admission and her troponins peaked at 0.29 NG/mL before coming down to 017 ng/ml. Serial EKGs showed no ST segment changes. An echocardiogram done showed EF of 65 % with normal ventricular function and mitral valve prolapse with no other major valvular abnormalities. She remained symptom free on above therapy and was discharged home with recommendations to follow with her usual medical device sales consultant for a stress test. She was discharged on PO Metoprolol 25mg BID, aspirin 325mg daily, Plavix 75mg daily and Lipitor 80mg daily. The patient showed multiple findings consistent with Marfan's syndrome during the admission (although never formally diagnosed) including pectus excavatum, mitral valve prolapse, scoliosis and a body habitus consistent with this diagnosis. She also gave a history of one or two of her sisters having this diagnosis along with an aortic aneurysm. The patient was instructed to have genetic testing done. She stated that she was aware of this need but had not pursued this workup. She was also counselled on the need to have periodic echocardiograms and should remain on a beta nicole. Allergies: Coded Allergies: adhesive (Mild, RASH, ITCHING, WELTS FROM THE PATCH FROM SMOKING 05/08/17) Disposition Summary Disposition Principal Diagnosis: 1. NSTEMI Additional Diagnosis: 2. History of mitral valve prolapse 3. ADHD Discharge Disposition: hospice - home Discharge Instructions General Discharge Information Code Status: Full Code Patient's Diet: Heart healthy diet Patient's Activity: Self limited activity Follow-Up Instructions/Appts: 1. Follow-up with your primary care provider and your medical device sales consultant within 1 week of discharge 2. The patient showed multiple findings consistent with Marfan's syndrome on this admission, although never formally diagnosed, including pectus excavatum, mitral valve prolapse, scoliosis and a body habitus consistent with this diagnosis. She also gave a history of one or two of her sisters having this diagnosis along with an aortic aneurysm. The patient was instructed to have genetic testing done. She stated that she was aware of this need but had not pursued this workup. She was also counselled on the need to have periodic echocardiograms and should remain on a beta nicole. Medications at Discharge Discharge Medications: Continue taking these medications: Lisdexamfetamine Dimesylate (Vyvanse) 40 MG CAPSULE 1 Capsule ORAL Every Morning Qty = 30 Paroxetine HCl (Paxil) 10 MG TABLET 2 Tablet ORAL DAILY Qty = 60 Comments: GIVEN 05/11/17 @ 1040 Gabapentin (Gabapentin) 300 MG CAPSULE 2 Capsule ORAL THREE TIMES DAILY as needed for ANXIETY Qty = 180 Start taking the following new medications: Aspirin (Aspirin*) 325 MG TABLET 1 Tablet ORAL DAILY Qty = 30 No Refills Instructions: . Comments: GIVEN 05/11/17 @ 1040 Metoprolol Tartrate (Metoprolol Tartrate) 25 MG TABLET 1 Tablet ORAL TWICE DAILY Qty = 60 No Refills Instructions: . Atorvastatin Calcium (Atorvastatin Calcium) 80 MG TABLET 1 Tablet ORAL DAILY Qty = 30 No Refills Instructions: . Comments: GIVEN 05/10/17 @ 5:30 PM Clopidogrel Bisulfate (Plavix) 75 MG TABLET 1 Tablet ORAL DAILY Qty = 30 No Refills Instructions: . Comments: GIVEN 05/11/17 @ 1040 Copies To: Bassam Kapadia MD
--- NOTE | 2017-05-09 15:02 | Patient Discharge Instructions ---
Discharge Instructions General Discharge Information You were seen/treated for: NSTEMI Watch for these problems: Please return to the ER in case of any chest pain, palpitations, or shortness of breath. 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 Diet Continue normal diet: Yes Recommended Diet: Heart Healthy Activity Full Activity/No Limits: Yes Acute Coronary Syndrome Inclusion Criteria At DC or during hospital stay patient has or had the following: ACS DIAGNOSIS Yes Discharge Core Measures Meds if any: Prescribed or Continued at Discharge Aspirin Yes Beta-Dunia Yes Statin Yes Meds if any: NOT Prescribed or Continued at Discharge Congestive Heart Failure Inclusion Criteria At DC or during hospital stay patient has or had the following: CHF DIAGNOSIS No Discharge Core Measures Meds if any: Prescribed or Continued at Discharge Meds if any: NOT Prescribed or Continued at Discharge Cerebrovascular accident Inclusion Criteria At DC or during hospital stay patient has or had the following: CVA/TIA Diagnosis No Discharge Core Measures Meds if any: Prescribed or Continued at Discharge Meds if any: NOT Prescribed or Continued at Discharge Venous thromboembolism Inclusion Criteria VTE Diagnosis No VTE Type NONE VTE Confirmed by (Test) NONE Discharge Core Measures - Per Current guidelines, there needs to be overlap - treatment for the first 5 days of Warfarin therapy. - If discharged on Warfarin prior to 5 days of - overlap therapy, the patient will need to be - assessed for post discharge needs including - *Post discharge parental anticoagulation - *Warfarin and/or parental anticoagulation education - *Follow up date to check INR post discharge At least 5 days overlap therapy as Inpatient No Meds if any: Prescribed or Continued at Discharge Note: Overlap Therapy is Warfarin and Anticoagulant Meds if any: NOT Prescribed or Continued at Discharge
[2017-05-09] MEDS ORDERED: MINITRAN1 EAC3 TOP (15:08)
[2017-05-09 19:12] LABS: PTT 50 SEC (25-37)
[2017-05-09 22:00] VITALS: BP 94/64
[2017-05-10 02:38] LABS: PTT 105 SEC (25-37)
[2017-05-10 05:43] VITALS: BP 98/60
[2017-05-10 07:26] VITALS: BP 98/60
--- NOTE | 2017-05-10 07:50 | ECHOCARDIOGRAM REPORT ---
TREVOR CARBALLO Age: 56 : 1960 Gender: F Exam Date: 05/09/2017 09:51 Exam Location: [place] Ht (in): 72 Wt (lb): 155 BSA: 1.88 BP: 90 / 60 Ordering Physician: Masha Mcpherson MD Referring Physician: Masha Mcpherson MD Technologist: Brent Shore [facility] Room Number: 176-1 Indications: Chest Pain Rhythm: Sinus Technical Quality: good FINDINGS Left Ventricle Normal left ventricular size, wall thickness and systolic function with no obvious regional wall motion abnormalities. Normal left ventricular diastolic filling pattern for age. The ejection fraction is visually estimated at 65%. Right Ventricle The right ventricle is normal in size and function. Right Atrium The right atrium is mildly enlarged. Left Atrium The left atrium is normal in size. The interatrial septum is intact. Mitral Valve The mitral valve is mildly thickened with prolapse of the anterior and posterior leaflets. There is mild eccentric mitral regurgitation. Aortic Valve Structurally normal aortic valve without significant sclerosis or stenosis. There is no aortic regurgitation. Tricuspid Valve The tricuspid valve is mildly thickened with normal function. There is trace tricuspid regurgitation. Pulmonic Valve Structurally normal pulmonic valve. There is no pulmonic regurgitation. Pericardium Normal pericardium without effusion. No pleural effusion. Great Vessels Normal aortic root dimension. The aortic arch and great vessels are well seen and are normal. CONCLUSIONS 1. Normal EF of 65%. 2. Mild right atrial enlargement. 3. Mild mitral valve prolapse with mild eccentric mitral regurgitation. 4. Trace tricuspid regurgitation. Rainer Murray M.D. (Electronically Signed) Final Date: 10 May 2017 07:50 MEASUREMENTS (Male / Female) Normal Values 2D ECHO LV Diastolic Diameter PLAX 5.7 cm 4.2 - 5.9 / 3.9 - 5.3 cm LV Systolic Diameter PLAX 3.5 cm 2.1 - 4.0 cm LV Fractional Shortening PLAX 38.6 % 25 - 46 % LV Ejection Fraction 2D Teich 68.2 % IVS Diastolic Thickness 0.7 cm LVPW Diastolic Thickness 0.8 cm LV Relative Wall Thickness 0.3 RV Internal Dim ED PLAX 3.4 cm 1.9 - 3.8 cm LVOT Diameter 2.1 cm Aortic Root Diameter 3.1 cm LA Volume 98.0 cm 18 - 58 / 22 - 52 cm DOPPLER AV Peak Velocity 126.0 cm/s AV Peak Gradient 6.4 mmHg AV Mean Velocity 86.6 cm/s AV Mean Gradient 3.0 mmHg AV Velocity Time Integral 26.7 cm LVOT Peak Velocity 74.4 cm/s LVOT Peak Gradient 2.2 mmHg LVOT Mean Velocity 48.8 cm/s LVOT Mean Gradient 1.0 mmHg LVOT Velocity Time Integral 16.8 cm LVOT Stroke Volume 58.2 cm AV Area Cont Eq vti 2.2 cm AV Area Cont Eq pk 2.0 cm MV Peak Velocity 129.0 cm/s MV Peak Gradient 6.7 mmHg MV Mean Velocity 79.9 cm/s MV Mean Gradient 3.0 mmHg Mitral E Point Velocity 95.8 cm/s Mitral A Point Velocity 92.3 cm/s Mitral E to A Ratio 1.0 MV PHT Velocity 132.0 cm/s MV Deceleration [place] 308.0 cm/s MV Pressure Half Time 128.6 ms MV Area PHT 1.7 cm MV Deceleration Time 363.0 ms MR Peak Velocity 488.5 cm/s MR Peak Gradient 95.5 mmHg PV Peak Velocity 54.5 cm/s PV Peak Gradient 1.2 mmHg PV Mean Velocity 40.7 cm/s PV Mean Gradient 1.0 mmHg PV Velocity Time Integral 14.6 cm LV E' Lateral Velocity 7.3 cm/s Mitral E to LV E' Lateral Ratio 13.1 LV E' Septal Velocity 7.3 cm/s Mitral E to LV E' Septal Ratio 13.1
--- NOTE | 2017-05-10 08:16 | PN- Housestaff ---
Subjective Follow-up For: NSTEMI Complaints: no complaints Tele-Events Since Last Visit: Sinus bradycardia. HR 53 to 57 bpm. No events overnight. Subjective: Ms Smith has no complaints this morning. She denies chest pain, palpitations or shortness of breath or lower extremity edema. Review of Systems Constitutional: Denies: see HPI, fever, malaise, weakness. EENTM: Denies: double vision, nasal congestion. Cardiovascular: Denies: chest pain, edema, orthopena, palpitations, syncope. Respiratory: Denies: cough, orthopnea, short of breath, sputum production. Gastrointestinal: Denies: bloating, diarrhea, nausea. Genitourinary: Denies: dysuria, frequency. Objective Last 24 Hrs of Vital Signs/I&O Vital Signs Date Time Temp Pulse Resp B/P B/P Pulse O2 O2 Flow FiO2 Mean Ox Delivery Rate 05/10 1007 90/52 05/10 0726 98.3 53 18 98/60 95 Room Air 05/10 0543 98/60 05/09 2200 98.8 70 18 94/64 95 Room Air 05/09 2135 70 94/64 05/09 1400 98.4 62 18 90/52 95 /09 1236 72 90/50 Intake & Output 05/10 1600 05/10 0800 05/10 0000 Intake Total 192 810 Output Total Balance 192 810 Intake, IV 72 210 Intake, Oral 120 600 Physical Exam General Appearance: Alert, Oriented X3, Cooperative, No Acute Distress Skin: No Rashes Skin Temp/Moisture Exam: Warm/Dry Sepsis Skin Exam (color): Normal for Ethnicity HEENT: Atraumatic, PERRLA, EOMI, Mucous Membr. moist/pink Neck: Supple, No JVD, No thryomegaly Lymphatic: Cervical nl Cardiovascular: Regular Rate, Normal S1, Normal S2, No Murmurs Lungs: Clear to Auscultation, Normal Air Movement Abdomen: Normal Bowel Sounds, Soft, No Tenderness, No Hepatospenomegaly, No Masses Neurological: Normal Speech, Strength at 5/5 X4 Ext, Normal Tone Extremities: No Clubbing, No Edema Assessment/Plan Assessment: Ms Smith is a 56 year old woman with a past medical history of ADHD, mitral valve prolapse came to the hospital with a chief concern of chest/epigastric pain radiating to the jaw associated with palpitations and dizziness. She is being evaluated and managed for NSTEMI Problem List; 1. NSTEMI 2. History of ADHD and mitral valve prolapse Plan - Troponin trended down from 0.16-0.29-0.17. - Will continue IV heparin, aspirin , Plavix, NTG paste 1/2 inch Q 6 hours, Lipitor and Metoprolol 25mg BID - Monitor CBC while on heparin drip - Supplemental oxygen as needed - Patient was counselled about the need for cardiac catheterization yesterday but decided to wait until she can see her own facilities and grounds director on Friday - Will follow up with cardiology regarding her curent rmedication regimen -She is being monitored with plans for urgent cardiac catheterization if her chest pain recurrs or discharge on Friday to follow up with her facilities and grounds director for cardiac testing if she remains chest pain free -Her CMR is ready and the discharge summary should be updated if the patient needs to be transferred. DVT prophylaxis; IV heparin Patient is full code Problem List: 1. NSTEMI (non-ST elevated myocardial infarction) 2. Troponin level elevated Pain Ratin Pain Location: none Pain Goal: Remain pain free Pain Plan: Tyleonol prn, morphine Tomorrow's Labs & Rationales: CBC for heparin therapy monitoring
[2017-05-10 10:53] LABS: ABSOLUTE BASOPHIL COUNT 0.1 /CUMM (0.0-0.2); ABSOLUTE EOSINOPHIL COUNT 0.2 /CUMM (0.0-0.7); ABSOLUTE GRANULOCYTE CT 4.1 /CUMM (1.4-6.5); ABSOLUTE LYMPH COUNT 2.4 /CUMM (1.2-3.4); ABSOLUTE MONOCYTE COUNT 0.5 /CUMM (0.10-0.60); BASOPHIL % 0.8 % (0.0-2.0); EOSINOPHIL % 2.9 % (0-5); GRANULOCYTE % 56.7 % (42.2-75.2); HEMATOCRIT 38.7 % (37-47); MEAN CORPUSCULAR HGB 30.4 PG (27.0-31.0); MEAN CORPUSCULAR HGB CONC 33.7 G/DL (33.0-37.0); MEAN CORPUSCULAR VOLUME 90.1 FL (81.0-99.0); MEAN PLATELET VOLUME 7.9 FL (7.4-10.4); PLATELET COUNT 287 /CUMM (130-400); RBC DISTRIBUTION WIDTH 14.2 % (11.5-14.5); RED BLOOD CELL CT 4.29 /CUMM (4.20-5.40); WHITE BLOOD CELL COUNT 7.3 /CUMM (4.8-10.8)
[2017-05-10 11:06] LABS: PTT 51 SEC (25-37)
--- NOTE | 2017-05-10 14:10 | PN- Cardiology ---
Subjective Subjective: * Patient ambulated without complaints. * sinus rhythm Objective Vital Signs and I&Os Vital Signs Date Time Temp Pulse Resp B/P B/P Pulse O2 O2 Flow FiO2 Mean Ox Delivery Rate 05/10 1007 90/52 05/10 0726 98.3 53 18 98/60 95 Room Air 05/10 0543 98/60 05/09 2200 98.8 70 18 94/64 95 Room Air 05/09 2135 70 94/64 Intake & Output 05/10 1600 05/10 0800 05/10 0000 05/09 1600 05/09 0800 05/09 0000 Intake Total 192 810 560 138 0 Output Total 600 Balance 192 810 -40 138 0 Intake, IV 72 210 160 138 Intake, Oral 120 600 400 0 0 Output, Urine 600 Patient 155 lb 155 lb Weight Weight Bed scale Measurement Method Physical Exam: General: WD/WN female in NAD; alert and oriented x 3 HEENT: NC/AT, PERRL, EOMI Neck: no JVD, no carotid bruit Heart: RRR w/o murmur, mitral valve click, pectus excavatum Lungs: clear bilaterally ABdomen: soft, NT, +ve bowel sounds Extremities: no edema Assessment/Plan Assessment/Plan * Patient ambulated without complaints. Cardiac enzymes are trending downward. Her echo shows a normal EF with mitral valve prolapse. Will discontinue IV heparin at 8AM tomorrow. Change to a NTG patch at 0.2mg/hr for 12 hours daily. Continue her beta nicole and statin. Continue aspirin. If stable tomorrow without chest pain we will discharge to home with a plan for outpatient stress test to risk stratify for ischemia. If this test is abnormal then she will need a cardiac catheterization. * This patient has multiple findings consistent with Marfan's syndrome although this has not been formally diagnosed. She has pectus excavatum, mitral valve prolapse, scoliosis and a body habitus consistent with this diagnosis. One or two of her sisters had this diagnosis along with an aortic aneurysm. The patient was instructed to have genetic testing done. She is aware of this need but has not pursued this workup. She needs to have periodic echocardiograms and should remain on a beta nicole. * In consideration of severe anxiety this patient need to have PRN Ativan. Continue telemetry? Yes
[2017-05-10 14:52] VITALS: BP 112/78
[2017-05-10 19:05] LABS: PTT 62 SEC (25-37)
[2017-05-11 07:27] VITALS: BP 118/64
[2017-05-11 07:51] LABS: ABSOLUTE BASOPHIL COUNT 0.1 /CUMM (0.0-0.2); ABSOLUTE EOSINOPHIL COUNT 0.2 /CUMM (0.0-0.7); ABSOLUTE LYMPH COUNT 2.8 /CUMM (1.2-3.4); ABSOLUTE MONOCYTE COUNT 0.6 /CUMM (0.10-0.60); BASOPHIL % 0.9 % (0.0-2.0); EOSINOPHIL % 3.2 % (0-5); GRANULOCYTE % 51.9 % (42.2-75.2); HEMATOCRIT 38.7 % (37-47); MEAN CORPUSCULAR HGB 30.6 PG (27.0-31.0); MEAN CORPUSCULAR HGB CONC 33.6 G/DL (33.0-37.0); MEAN PLATELET VOLUME 7.9 FL (7.4-10.4); PLATELET COUNT 270 /CUMM (130-400); RBC DISTRIBUTION WIDTH 14.1 % (11.5-14.5); RED BLOOD CELL CT 4.25 /CUMM (4.20-5.40); WHITE BLOOD CELL COUNT 7.7 /CUMM (4.8-10.8)
--- NOTE | 2017-05-11 08:27 | PN- Housestaff ---
Subjective Follow-up For: NSTEMI Tele-Events Since Last Visit: NSR Heart rate 58-65 Overnight events noted. Subjective: Patient resting comfortably in bed, wants to go home as she did not have any chest pain since admission and she has an appointment with her own chief engineer production tomorrow at 10 AM. Review of Systems Constitutional: Reports: no symptoms. EENTM: Reports: no symptoms. Cardiovascular: Reports: no symptoms. Respiratory: Reports: no symptoms. Gastrointestinal: Reports: no symptoms. Genitourinary: Reports: no symptoms. Musculoskeletal: Reports: no symptoms. Skin: Reports: no symptoms. Neurological/Psychological: Reports: no symptoms. Hematologic/Endocrine: Reports: no symptoms. Immunologic/Allergic: Reports: no symptoms. Objective Last 24 Hrs of Vital Signs/I&O Vital Signs Date Time Temp Pulse Resp B/P B/P Pulse O2 O2 Flow FiO2 Mean Ox Delivery Rate 05/11 1038 108/60 05/11 0727 98.2 67 18 118/64 97 Room Air 05/11 0049 97.7 56 18 95 Room Air 05/10 2155 60 110/72 05/10 1452 97.9 64 18 112/78 96 Room Air Intake & Output 05/11 1600 05/11 0800 05/11 0000 Intake Total 280.8 195 Output Total Balance 280.8 195 Intake, IV 180.8 95 Intake, Oral 100 100 Patient 146 lb Weight Weight Bed scale Measurement Method Physical Exam General Appearance: Alert, Oriented X3, Cooperative, No Acute Distress Skin: No Rashes, No Breakdown Cardiovascular: Regular Rate, Normal S1, Normal S2, No Murmurs Lungs: Clear to Auscultation Abdomen: Normal Bowel Sounds, Soft, No Tenderness Extremities: No Clubbing, No Cyanosis, No Edema Current Medications: Current Medications Sig/Thor Start time Last Medication Dose Route Stop Time Status Admin Acetaminophen 650 MG Q8P PRN 05/09 0245 AC PO Aspirin 325 MG DAILY 05/10 1000 AC 05/11 PO 1038 Atorvastatin Calcium 80 MG 1700 05/09 1700 AC 05/10 PO 1724 Clopidogrel Bisulfate 75 MG DAILY 05/09 1000 AC 05/11 PO 1038 Gabapentin 600 MG TID PRN 05/09 0015 AC PO Heparin Sodium 25,000 UNIT Q24H 05/08 2230 DC 05/11 (Porcine) IV 05/11 08 0346 Sodium Chloride 500 ML Lorazepam 0.5 MG Q12 PRN 05/10 1430 AC PO 05/17 1429 Metoprolol Tartrate 25 MG BID 05/09 1000 AC 05/09 PO 2135 Morphine Sulfate 2 MG Q8P PRN 05/09 0315 AC 05/09 IV 0852 Nitroglycerin 0.2 MG DAILY 05/11 1000 DC TOP Nitroglycerin 0.2 MG DAILY 05/10 1530 AC TOP Nitroglycerin 0.5 GM Q6 05/09 0600 DC TOP 05/10 1800 Paroxetine HCl 20 MG DAILY 05/09 1000 AC 05/11 PO 1038 Tramadol HCl 50 MG Q8P PRN 05/09 0245 AC PO Last 24 Hrs of Lab/Raffy Results Last 24 Hrs of Labs/Mics: Laboratory Tests 05/11/17618: APTT 71 H, CBC w Diff NO MAN DIFF REQ, RBC 4.25, MCV 91.0, MCH 30.6, MCHC 33.6, RDW 14.1, MPV 7.9, Gran % 51.9, Lymphocytes % 36.8, Monocytes % 7.2, Eosinophils % 3.2, Basophils % 0.9, Absolute Granulocytes 4.0, Absolute Lymphocytes 2.8, Absolute Monocytes 0.6, Absolute Eosinophils 0.2, Absolute Basophils 0.1 05/10/179: APTT 62 H Assessment/Plan Assessment: Ms Smith is a 56 year old woman with a past medical history of ADHD, mitral valve prolapse came to the hospital with a chief concern of epigastric pain radiating to the jaw associated with palpitations and dizziness. Problem List; 1. NSTEMI 2. History of ADHD and mitral valve prolapse - Troponin trended down from 0.29-0.17. - Discontinue IV heparin and send the patient home on aspirin , Plavix, Lipitor and Metoprolol 25mg BID. - Patient denied cardiac catheterization here, she wants to follow-up with her own chief engineer production and has an appointment with the chief engineer production tomorrow at 10 AM. - Continue gabapentin and paroxetine. DVT prophylaxis; IV heparin Patient is full code Problem List: 1. NSTEMI (non-ST elevated myocardial infarction) 2. Troponin level elevated Pain Ratin Pain Location: None Pain Goal: Remain pain free Pain Plan: Nitroglycerin Tomorrow's Labs & Rationales: None
[2017-05-11 08:29] LABS: PTT 71 SEC (25-37)
[2017-05-11 10:38] VITALS: BP 108/60
--- NOTE | 2017-05-11 13:42 | PN- Cardiology ---
Subjective Subjective: * Patient is ambulating without complaints. * sinus rhythm Objective Vital Signs and I&Os Vital Signs Date Time Temp Pulse Resp B/P B/P Pulse O2 O2 Flow FiO2 Mean Ox Delivery Rate 05/11 1038 108/60 05/11 0727 98.2 67 18 118/64 97 Room Air 05/11 0049 97.7 56 18 95 Room Air 05/10 2155 60 110/72 05/10 1452 97.9 64 18 112/78 96 Room Air Intake & Output 05/11 1600 05/11 0800 05/11 0000 05/10 1600 05/10 0800 05/10 0000 Intake Total 280.8 195 750 192 810 Output Total Balance 280.8 195 750 192 810 Intake, IV 180.8 95 150 72 210 Intake, Oral 100 100 600 120 600 Patient 146 lb Weight Weight Bed scale Measurement Method Physical Exam: General: WD/WN female in NAD; alert and oriented x 3 HEENT: NC/AT, PERRL, EOMI Neck: no JVD, no carotid bruit Heart: RRR w/o murmur, mitral valve click, pectus excavatum Lungs: clear bilaterally ABdomen: soft, NT, +ve bowel sounds Extremities: no edema Assessment/Plan Assessment/Plan * Patient ambulated without complaints. Cardiac enzymes have trended downward. Her echo shows a normal EF with mitral valve prolapse. Okay to discharge to home with follow up tomorrow by her usual veneer sample maker for anticipated stress test. Discharge on Metoprolol 25mg BID, aspirin 325mg daily, Plavix 75mg daily and Lipitor 80mg daily. * This patient has multiple findings consistent with Marfan's syndrome although this has not been formally diagnosed. She has pectus excavatum, mitral valve prolapse, scoliosis and a body habitus consistent with this diagnosis. One or two of her sisters had this diagnosis along with an aortic aneurysm. The patient was instructed to have genetic testing done. She is aware of this need but has not pursued this workup. She needs to have periodic echocardiograms and should remain on a beta nicole. Continue telemetry? No
[2017-05-11] MEDS ORDERED: METOPROLOL TART25 M1 PO (14:08)
[2017-05-11] MEDS ORDERED: ATORVASTATIN CA80 M1 PO (14:08)
[2017-05-11] MEDS ORDERED: ASPIRIN325 M2 PO (14:08)
[2017-05-11] MEDS ORDERED: PLAVIX75 M1 PO (14:08)
== END 2017-05-11 14:42 | DRG 282 ==
LOC: ERH 20:22 → ERHI 22:31 → 1NO 22:31 → ENRESERV 23:12 → 1NO 05-09 01:09 → ENPENDDIS 05-11 14:05 → 1NO 05-11 14:42
PROVIDERS: Emergency Medicine; Internal Medicine; Internal Medicine Endocrinology, Diabetes & Metabolism; Internal Medicine Interventional Cardiology; Physician Assistant Medical; Student in an Organized Health Care Education/Training Program
DX: I21.4 Non-ST elevation (NSTEMI) myocardial infarction (principal); F10.21 Alcohol dependence, in remission; F90.9 Attention-deficit hyperactivity disorder, unspecified type; F17.200 Nicotine dependence, unspecified, uncomplicated; I34.1 Nonrheumatic mitral (valve) prolapse
CPT/HCPCS: 1NP; ERO; 36592; 71045; 80307; 82436; 93005; 93010; 93306; 99291; J1644; J3490